=== PATIENT | female | born 1990 | race Caucasian/White ===

== ENCOUNTER 2018-10-22 12:13 | Emergency (ER) | payer MEDICAID ==
[~2018-10-22] VITALS: Ht 160 cm; Wt 70.3 kg
[2018-10-22 12:31] VITALS: BP_SYST 119
--- NOTE | 2018-10-22 12:31 | NUR ---
Note [email or web address] in [facility] - 10/22/18 at 1547 by [email or web address] Patient triaged and placed in waiting room. VSS and patient appears in no acute distress at this time. Accompanied by self, awaiting available bed, and MD notified of need for MSE.
--- NOTE | 2018-10-22 15:46 | NUR ---
Patient to [facility] for evaluation. Report given to Ranjana.
--- NOTE | 2018-10-22 15:52 | NUR ---
Pt AAOx4 ambulated into ED c/o cough, nausea, dizziness, and bodyaches x 2 days. Denies vomiting/diarrhea. Skin pink dry and warm, breathing even and unlabored. No other injuries/complaints per pt/noted. Will continue to monitor.
--- NOTE | 2018-10-22 16:37 | NUR ---
Pt moved to bed 7
--- NOTE | 2018-10-22 16:38 | NUR ---
Baron le in [facility] - 10/22/18 at 1638 by [email or web address] PT moved to bed 07 per request
--- NOTE | 2018-10-22 17:25 | NUR ---
ER Dr. Thacker at bedside examining patient.
[2018-10-22] MEDS: AZITHROMYCIN 250 MG TABLET PO ONE (17:38)
--- NOTE | 2018-10-22 17:41 | NUR ---
Zithromax 500mg PO administered. Pt tolerated well. No adverse reactions noted. TV turned off per pt request, laying in bed with no signs of distress. Will continue to monitor.
[2018-10-22 18:12] LABS: BASOPHILS # (AUTO) 0.1 K/uL (0.0-0.2); BASOPHILS % (AUTO) 0.7 % (0.0-2.0); EOSINOPHILS # (AUTO) 0.1 K/uL (0.0-0.4); EOSINOPHILS % (AUTO) 1.5 % (0.0-4.0); HEMATOCRIT 41.6 % (36-48); HEMOGLOBIN 13.7 g/dL (12.0-16.0); LYMPHOCYTES % (AUTO) 25.2 % (20.5-51.5); MEAN CORPUSCULAR HEMOGLOBIN 32 pg (27-31); MEAN CORPUSCULAR HGB CONC 33 % (32-36); MEAN CORPUSCULAR VOLUME 97 fL (79.0-98.0); MONOCYTES # (AUTO) 0.6 K/uL (0.0-1.0); MONOCYTES % (AUTO) 7.9 % (1.7-9.3); NEUTROPHILS # (AUTO) 5.1 K/uL (1.8-7.7); NEUTROPHILS % (AUTO) 64.7 % (40.0-70.0); PLATELET COUNT (AUTO) 232 K/uL (130-430); WHITE BLOOD COUNT (AUTO) 7.9 K/uL (4.8-10.8)
[2018-10-22 18:13] LABS: CALCIUM 8.9 mg/dL (8.4-11.0); CREATININE 0.68 mg/dL (0.55-1.30)
[2018-10-22 18:18] LABS: ALBUMIN 3.9 g/dL (3.4-4.8); TOTAL BILIRUBIN 0.4 mg/dL (0.0-1.0)
[2018-10-22 18:40] VITALS: BP_SYST 121
--- NOTE | 2018-10-22 18:40 | NUR ---
Patient given written and verbal discharge instructions and verbalizes understanding. ER MD Thacker discussed with patient the results and treatment provided. Patient in stable condition. ID arm band removed. Rx of Azithromycin given. Patient educated on pain management and to follow up with PMD. Pain Scale 0. Opportunity for questions provided and answered. Medication side effect fact sheet provided.
== END 2018-10-22 18:40 | disposition home or self-care (01) ==
LOC: SED 12:13
DX: J20.9 Acute bronchitis, unspecified (principal); Z88.8 Allergy status to other drugs, medicaments and biological substances
CPT/HCPCS: 36415; 80053; 85025; 99283; Q0144

== ENCOUNTER 2023-12-26 08:27 | Emergency (ER) | payer MEDICAID ==
[~2023-12-26] VITALS: Ht 160 cm; Wt 72.6 kg
[2023-12-26 08:33] VITALS: BP_SYST 116; PULSE 91; RESP 16; TEMP 97.6; O2SAT 99
[2023-12-26] MEDS ORDERED: DICY10SO PO (08:47)
[2023-12-26 09:10] LABS: BASOPHILS % (AUTO) 0.6 % (0.0-2.0); EOSINOPHILS # (AUTO) 0.1 K/uL (0.0-0.4); HEMATOCRIT 40.6 % (36-48); HEMOGLOBIN 13.7 g/dL (12.0-16.0); LYMPHOCYTES # (AUTO) 1.6 K/uL (1.0-5.5); MEAN CORPUSCULAR HEMOGLOBIN 33 pg (27-31); MEAN CORPUSCULAR HGB CONC 34 % (32-36); MEAN CORPUSCULAR VOLUME 98 fL (79.0-98.0); MONOCYTES # (AUTO) 0.6 K/uL (0.0-1.0); MONOCYTES % (AUTO) 9.4 % (1.7-9.3); NEUTROPHILS # (AUTO) 3.8 K/uL (1.8-7.7); PLATELET COUNT (AUTO) 185 K/uL (130-430); RED BLOOD CELL COUNT(AUTO) 4.14 MIL/uL (4.2-6.2); RED CELL DISTRIBUTION WIDTH 13.4 % (9.0-15.0)
[2023-12-26 09:17] LABS: SERUM HCG (QUALITATIVE) NEGATIVE (NEGATIVE)
[2023-12-26 09:20] LABS: CREATININE 0.92 mg/dL (0.55-1.30); POTASSIUM 3.7 mmol/L (3.5-5.1)
[2023-12-26 09:23] LABS: BILIRUBIN,URINE NEGATIVE (NEGATIVE); BLOOD, URINE NEGATIVE (NEGATIVE); COLOR,URINE YELLOW (YELLOW); GLUCOSE,URINE NEGATIVE (NEGATIVE); KETONES,URINE TRACE (NEGATIVE); LEUKOCYTE ESTERASE ,URINE NEGATIVE (NEGATIVE); NITRITE, URINE POSITIVE (NEGATIVE); PH,URINE 5.5 (5.0-8.0); PROTEIN URINE NEGATIVE (NEGATIVE); UROBILINOGEN,URINE 0.2 (0.2-1.0)
[2023-12-26 09:25] LABS: BILIRUBIN,DIRECT 0.1 mg/dL (0.0-0.3); TOTAL BILIRUBIN 0.6 mg/dL (0.0-1.0); TOTAL PROTEIN, SERUM 7.8 g/dL (6.4-8.3)
[2023-12-26 09:27] LABS: CLARITY/URINE SLIGHTLY HAZY (CLEAR)
[2023-12-26 09:36] LABS: BACTERIA,URINE MODERATE /HPF (None Seen); RBC,URINE NONE SEEN /HPF (0-3)
[2023-12-26] MEDS ORDERED: NITR-85 PO (09:50)
== END 2023-12-26 10:04 | disposition home or self-care (01) ==
LOC: SED 08:27
DX: N39.0 Urinary tract infection, site not specified (principal); R19.7 Diarrhea, unspecified; Z91.013 Allergy to seafood
CPT/HCPCS: 36415; 80048; 80076; 81000; 81001; 81015; 83690; 84703; 85025; 99283